=== PATIENT | male | born 1995 | race Caucasian/White ===

== ENCOUNTER 2017-02-24 14:14 | Emergency (ER) | payer MEDICAID ==
[2017-02-24] MEDS ORDERED: ONDANSETRON HCL 4 MG/2 ML VIAL ONE (14:31)
[2017-02-24] MEDS ORDERED: FENTANYL 100 MCG/2 ML VIAL ONE (14:45)
[2017-02-24 14:51] LABS: EOSINOPHILS 0.1 % (0.0-6.0); MEAN CORPUS. HGB CONCENTRATION 31.5 g/dL (32.0-36.0); MEAN CORPUSCULAR HEMOGLOBIN 21.8 pg (29.0-35.0); MEAN PLATELET VOLUME 7.5 fL (7.4-10.4)
[2017-02-24 14:58] LABS: BASOPHIL# 0.1 X 10^3uL (0.0-0.1); BASOPHILS 0.5 % (0.0-2.0); HEMATOCRIT 36.1 % (42.0-54.0); HEMOGLOBIN 11.4 g/dL (14.0-18.0); LYMPHOCYTES 11.6 % (20.0-40.0); LYMPHOCYTES# 1.7 X 10^3uL (0.8-3.8); MONOCYTES 3.5 % (2.0-10.0); MONOCYTES# 0.5 X 10^3uL (0.2-1.0); NEUTROPHILS 84.3 % (54.0-75.0); NEUTROPHILS# 12.3 X 10^3uL (2.6-6.7); PLATELET COUNT 674 X 10^3uL (130-440); RED BLOOD COUNT 5.23 X 10^6uL (4.20-6.10); RED CELL DISTRIBUTION WIDTH 18.9 % (11.5-14.5); WHITE BLOOD COUNT 14.6 X 10^3uL (3.9-10.7)
[2017-02-24 15:01] LABS: ALBUMIN 5.4 g/dL (3.5-5.0); ALKALINE PHOSPHATASE 85 U/L (38-126); ALT 31 U/L (21-72); AST 27 U/L (17-59); BILIRUBIN, DIRECT 0.3 mg/dL (0.0-0.4); BILIRUBIN, TOTAL 1.4 mg/dL (0.2-1.3); BLOOD UREA NITROGEN 18 mg/dL (9-20); CALCIUM 11.2 mg/dL (8.4-10.2); CHLORIDE 103 mmol/L (98-107); EST GLOMERULAR FILTRATION RATE > 60 mL/min; GLUCOSE 159 mg/dL (70-100); LIPASE 85 U/L (23-300); POTASSIUM 3.8 mmol/L (3.5-5.1); SODIUM 145 mmol/L (137-145)
--- NOTE | 2017-02-24 16:01 | CT REPORT ---
HISTORY: Acute abdominal pain. COMPARISON: None. TECHNIQUE: 5 mm axial images of the abdomen and pelvis after the intravenous administration of 98 mL of Isovue-3 00. This examination was performed using automated exposure control, adjustment of MA or KV according to patient size, and/or use of iterative reconstruction technique. FINDINGS: The lung bases are clear. The liver, spleen, pancreas, gallbladder, adrenal glands, and kidneys are unremarkable. No evidence of bowel obstruction. Appendix is not definitively identified but there is no definite evidence of a right lower quadrant i nflammatory process. IMPRESSION: No abnormal findings to explain the patient's abdominal pain. Please note that the appendix is not de finitively visualized so acute appendicitis is not excluded. No right lower quadrant inflammatory pro cess is identified. Final Electronic Signature: This report was electronically signed by Blas Raymundo MD, FACR on 02/24/2017 3:59 PM. ray /
[2017-02-24] MEDS ORDERED: HALOPERIDOL 5 MG/ML VIAL ONE (16:05)
[2017-02-24] MEDS ORDERED: DIPHENHYDRAMINE 50 MG/ML VIAL ONE (16:08)
[2017-02-24] MEDS ORDERED: KETOROLAC TROMETHAMINE 30 MG/ML VIAL ONE (16:23)
[2017-02-24 18:19] LABS: URINE RBC NONE SEEN (0-5/hpf)
[2017-02-24 18:27] LABS: URINE APPEARANCE CLEAR; URINE COLOR YELLOW; URINE GLUCOSE NORMAL (NEGATIVE); URINE LEUKOCYTE ESTERASE NEGATIVE (NEGATIVE); URINE NITRITE NEGATIVE (NEGATIVE); URINE PH 7.5 (5-7); URINE PROTEIN 30mg/dL (1+) (NEG - TRACE); URINE SPECIFIC GRAVITY 1.015 (0.001-1.035)
[2017-02-24 18:28] LABS: URINE BACTERIA NONE SEEN (<10/hpf); URINE BILIRUBIN 0.5 mg/100ml (1+) (NEGATIVE); URINE BLOOD NEGATIVE (NEGATIVE); URINE KETONE 100mg/dL (3+) (NEGATIVE); URINE SQUAMOUS EPITHELIAL CELL 0-5/hpf (<= 15/hpf); URINE UROBILINOGEN NORMAL (NEG-1mg/dL); URINE WBC 0-4/hpf (0-4/hpf)
--- NOTE | 2017-02-24 19:28 | ER NURSING DOCUMENTATION ---
Nurse's Notes [facility] Name:Yusef River Age:21 yrs Sex:Male :1995 Arrival Date:02/24/2017 Time:14:14 BedD-2 Private MD: Diagnosis:Abdominal Pain, Unspecified Presentation: 02/24 14:25 Presenting complaint: Patient states: SINCE YESTERDAY C/O SEVERE LOWER ABDOMINAL PAIN lc WITH N/V/D, NO FEVER. NO HX OF TRAUMA. CLUTCHING ABDOMEN AND YELLING. 14:25 Acuity: CYNDIE 2 lc 14:35 Transition of care: patient was not received from another setting of care. Risk lc considerations: scrotal pain, RADIATES TO, MD NOTIFIED. 14:35 Method Of Arrival: Private Vehicle lc Triage Assessment: 14:37 General: Appears distressed, ill, Behavior is agitated, anxious. Pain: Complains of lc pain in suprapubic area Pain radiates to GROIN Pain At worst was 10 out of 10 on a pain scale. Quality of pain is described as sharp, stabbing, Pain began 1 day ago. Neuro: Level of Consciousness is awake, alert, Oriented to person, place, time, none. GI: Abdomen is non- distended Bowel sounds hypoactive in right upper quadrant, left upper quadrant, right lower quadrant and left lower quadrant Abdomen is tender to palpation in suprapubic area Reports diarrhea, nausea, vomiting. Derm: Skin is pale. Historical: - Allergies: PENICILLINS; SULFA (SULFONAMIDES); - Home Meds: 1. None - PMHx: None; - PSHx: None; - Tetanus: < 10 years. - Ebola Screening: : Patient denies travel to an Ebola-affected area in the 21 days before illness onset. No symptoms or risks identified at this time. . - Immunization history: Flu Vaccine unknown. - Social history: Smoking status: Patient states was never smoker of tobacco. Patient uses alcohol marijuana Patient/guardian denies using street drugs. Screenin:40 Infectious Disease Risk None. Abuse screen: Denies threats or abuse. Denies injuries lc from another. Nutritional screening: No deficits noted. Assessment: 14:40 See Triage Assessment done by same RN. lc 16:15 Reassessment: Patient states feeling better. Patient states symptoms have improved. lc Patient appears in no apparent distress at this time. PATIENT HAS BEEN PACING ROOM AND CHANGING POSITIONS CONSTANTLY DUE TO THE PAIN. IS NOW RELAXED AND SLEEPY. VSS. O2 APPLIED. ON MONITORS AND RESTING.. 17:53 Reassessment: PT FOUND UP IN HALLS, TRIED TO PULL OUT IV, UNABLE TO GIVE A URINE lc SAMPLE. PAIN IMPROVED BUT STILL THERE. ACTS CONFUSED. STILL DENIES ANY DRUG USE RECENTLY. HIS BROTHER CALLED AND HAVING HIM COME TO ED. . 18:15 Reassessment: FINALLY GAVE URINE SAMPLE. AFTER WANTED TO LEAVE, FAMILY HERE , IV lc REMOVED, DID NOT WAS TO STAY FOR DC INSTRUCTIONS, JUST LEFT. FAMILY TOLD ME HE WAS WITHDRAWING FROM METH AND HEROIN. PATIENT HAD DENIED THIS TO OUR STAFF SEVERAL TIMES DURING HIS VISIT.. Vital Signs: 14:20 BP 144 / 89; Pulse 98; Resp 18; Temp 98.1; Pulse Ox 100% on R/A; Weight 68.04 kg; lc Height 5 ft. 5 in. (165.10 cm); Pain 10/10; 15:26 Pulse 98; Resp 18; Pulse Ox 98% ; Pain 8/10; lc 16:23 BP 121 / 62; Pulse 54; Resp 14; Pulse Ox 99% on 2 lpm NC; Pain 2/10; lc 16:42 Pulse 78; Resp 16; Pulse Ox 99% on 2 lpm NC; Pain 0/10; lc 17:33 Pulse 78; Resp 16; Pulse Ox 96% on 2 lpm NC; Pain 0/10; lc 14:20 Body Mass Index 24.96 (68.04 kg, 165.10 cm) lc 16:23 SAT DROPPED TO 80% AND SLEEPY, O2 APPLIED, AROUSES EASILY. lc 17:33 SLEEPING lc ED Course: 14:15 Patient arrived in ED. dp 14:20 Labs drawn. (by ED staff). Sent per order to lab. Inserted peripheral IV: 20 gauge in lc right antecubital area saline lock:. 14:24 Sophy Menon RN is Primary Nurse. lc 14:27 Triage completed. lc 14:31 Robert Ortiz MD is Attending Physician. tl1 14:40 Valuables Remains with patient Patient has correct armband on for positive lc identification. Placed in gown. Bed in low position. Call light in reach. Warm blanket given. 15:41 Patient moved back from [place]. dnn 18:11 [facility] is Referral Physician. tl1 Administered Medications: 14:25 Drug: Zofran 4 mg; Route: IVP; Infused Over: 2 mins; Site: right antecubital; lc 15:10 Follow up: Response: Nausea is decreased lc 14:28 Drug: NS 0.9% 1000 ml; Route: IV; Rate: bolus; Site: right antecubital; lc 17:00 Follow up: IV Status: Completed infusion; IV Intake: 1000ml lc 14:34 Drug: fentaNYL (PF) 50 mcg; Route: IVP; Site: right antecubital; lc 15:10 Follow up: Response: Pain is decreased lc 14:50 Drug: Dilaudid 1 mg; Route: IVP; Site: right antecubital; lc 15:10 Follow up: Response: Pain is decreased lc 16:00 Drug: Benadryl 25 mg; Route: IVP; Site: right antecubital; lc 16:43 Follow up: Response: No adverse reaction lc 16:02 Drug: Haldol 2.5 mg; {Note: PER VERBAL ORDER.} Route: IVP; Site: right antecubital; lc 16:45 Follow up: Response: Anxiety decreased lc 16:10 Drug: Toradol 30 mg; Route: IVP; Site: right antecubital; lc 16:44 Follow up: Response: Pain is decreased lc Point of Care Testing: Urine Dip: 18:10 pH: 7.5; ; Specific Fonda: 1.015; Ketones: Large; Glucose: Negative; Protein: lc Positive (+); Leukocytes: Negative; Nitrite: Negative ; Blood: Negative; Bilirubin: Small (+) ; Urobilinogen: Normal Intake: 17:00 IV: 1000ml; Total: 1000ml. Outcome: 18:12 Discharge ordered by . tl1 19:20 Discharged to home ambulatory, with family. lc 19:20 Condition: stable 19:20 Discharge Assessment: STILL HAS FINE TREMORS AND ABD PAIN 19:20 Discharge instructions given to LEFT BEFORE INSTRUCTIONS PRINTED, DID NOT WANT TO WAIT AND FAMILY IN A HURRY. Instructed on discharge instructions, follow up and referral plans. 19:20 IV D/Rudy 19:27 Patient left the ED. 02/25 09:52 Discharge F/U Call: Spoke with: patient. Overall Care on a scale of 1-10 with 10 lc being the best care, you rate our care as: Other comments: CAME BACK FOR SAME PROBLEM, TREATED AND RELEASED. Signatures: Sophy Menon RN RN lc Norman, David dnn Leigh, Tom, MD MD tl1 Angela Valero dp
--- NOTE | 2017-02-26 19:27 | ER PHYSICIAN DOCUMENTATION ---
Physician Documentation [facility] Name:Yusef River Age:21 yrs Sex:Male :1995 Arrival Date:02/24/2017 Time:14:14 BedD-2 Private MD: Robert Rdz Disposition: 02/26 07:54 Chart complete. tl1 Disposition: 02/24/17 18:12 Discharged to Home/Self Care. Impression: Abdominal Pain, Unspecified. - Condition is Good. - Discharge Instructions: Abdomen - ABDOMINAL PAIN, Unkown Cause, (Male). - Medical Reconciliation form form. - Follow up: [facility]; When: 4- 6 days; Reason: Recheck today's complaints, Continuance of care. - Problem is new. - Symptoms have improved. - Notes: Get into a detox program so you can get off meth and heroin. HPI: 02/24 14:30 This 21 yrs old Male presents to ER via Private Vehicle with complaints of tl1 Abdominal Pain. 14:30 The patient presents with abdominal pain that is diffuse. Onset: The symptoms/episode tl1 began/occurred gradually, this morning. The symptoms do not radiate. Associated signs and symptoms: Pertinent positives: anorexia, nausea, vomiting, Pertinent negatives: blood in stools, chest pain, constipation, diarrhea, dysuria, fever, palpitations, shortness of breath, testicular pain. The symptoms are described as crampy. Modifying factors: The symptoms are alleviated by nothing, the symptoms are aggravated by alcohol. Severity of pain: At its worst the pain was severe incapacitating in the emergency department the pain is unchanged. He initially denied opiate or other recreational drug use, except for marijuana. Later discussions with his family revealed that he is a heroin and methamphetamine abuser.. Historical: - Allergies: PENICILLINS; SULFA (SULFONAMIDES); - Home Meds: 1. None - PMHx: None; - PSHx: None; - Tetanus: < 10 years. - Ebola Screening: : Patient denies travel to an Ebola-affected area in the 21 days before illness onset. No symptoms or risks identified at this time. . - Immunization history: Flu Vaccine unknown. - Social history: Smoking status: Patient states was never smoker of tobacco. Patient uses alcohol marijuana Patient/guardian denies using street drugs. ROS: 14:30 Abdomen/GI: Positive for abdominal pain, nausea, vomiting, Negative for diarrhea, tl1 constipation, hematemesis, black/tarry stool, rectal bleeding. 14:30 All other systems are negative. Exam: 14:30 Constitutional: The patient appears alert, awake, well developed, well hydrated, well tl1 nourished, diaphoretic, in obvious distress, moderately distressed, in obvious pain, restless, uncomfortable, unkempt. 14:30 Eyes: Pupils: equal, round, and reactive to light and accomodation, dilated, bilaterally, right pupil is approximately 4 mm(s), left pupil is approximately 4 mm(s), Sclera: icterus, is not appreciated. 14:30 Neck: ROM/movement: is normal, is supple, Lymph nodes: no appreciated lymphadenopathy. 14:30 Cardiovascular: Rate: tachycardic, Rhythm: regular, Heart sounds: normal, murmur, not appreciated, gallop, not appreciated. 14:30 Respiratory: Respirations: normal, no acute changes, Breath sounds: are normal. 14:30 Abdomen/GI: Inspection: abdomen appears normal, Bowel sounds: active, Palpation: soft, moderate abdominal tenderness, in all quadrants, Liver: no appreciated palpable abnormalities. 14:30 : CVA tenderness, is absent, Male external genitalia: normal, no swelling, no tenderness, penile discharge, is absent. 14:30 Musculoskeletal/extremity: Exam is negative for acute changes. 14:30 Skin: Exam negative for acute changes, , Extensive left shoulder and arm tatoos. 14:30 Neuro: Exam negative for acute changes. Vital Signs: 14:20 BP 144 / 89; Pulse 98; Resp 18; Temp 98.1; Pulse Ox 100% on R/A; Weight 68.04 kg; lc Height 5 ft. 5 in. (165.10 cm); Pain 10/10; 15:26 Pulse 98; Resp 18; Pulse Ox 98% ; Pain 8/10; lc 16:23 BP 121 / 62; Pulse 54; Resp 14; Pulse Ox 99% on 2 lpm NC; Pain 2/10; lc 16:42 Pulse 78; Resp 16; Pulse Ox 99% on 2 lpm NC; Pain 0/10; lc 17:33 Pulse 78; Resp 16; Pulse Ox 96% on 2 lpm NC; Pain 0/10; lc 14:20 Body Mass Index 24.96 (68.04 kg, 165.10 cm) lc 16:23 SAT DROPPED TO 80% AND SLEEPY, O2 APPLIED, AROUSES EASILY. lc 17:33 SLEEPING lc MDM: 14:49 Patient medically screened. tl1 16:00 Differential diagnosis: appendicitis, bowel obstruction, cholecystitis, Cholelithiasis, tl1 diverticulitis, GI Bleed, Herpes Zoster, Irritable bowel syndrome, non-specific abd pain, pancreatitis, Peptic Ulcer Disease, Perf. Duodenal Ulcer, Perf. Gastric Ulcer, Peritonitis, Pyelonephritis, Testicular Torsion, Ureterolithiasis. Data reviewed: vital signs, nurses notes, lab test result(s), CBC, electrolytes, hepatic panel, urinalysis, urine drug screen, and as a result, I will discharge patient. Counseling: I had a detailed discussion with the patient and/or guardian regarding: the historical points, exam findings, and any diagnostic results supporting the discharge/admit diagnosis, the need for outpatient follow up, with the patient's primary care provider, to return to the emergency department if symptoms worsen or persist or if there are any questions or concerns that arise at home, Getting treatment for his opioid addiction. Response to treatment: the patient's symptoms have markedly improved after treatment, and as a result, I will discharge patient, recommend opiate addiction detox and rehab. ED course: Pain much improved with dilaudid 2 mg IV. 02/24 15:10 Order name: BASIC METABOLIC PANEL; Complete Time: 16:28 EDMS 02/26 07:34 Interpretation: Normal Except: CARBON DIOXIDE 20; GLUCOSE 159; CALCIUM 11.2. [facility] 02/24 15:10 Order name: HEPATIC PANEL; Complete Time: 16:28 EDMS 02/26 07:34 Interpretation: Normal Except: ALBUMIN 5.4; BILIRUBIN, TOTAL 1.4; TOTAL PROTEIN 9.0. [facility] 02/24 15:10 Order name: LIPASE; Complete Time: 16:28 EDMS 02/26 07:34 Interpretation: Normal: LIPASE 85. [facility] 02/24 15:11 Order name: CBC AUTO DIF, MDIF/RMOR IF IND; Complete Time: 16:28 EDMS 02/26 07:34 Interpretation: WHITE BLOOD COUNT 14.6; HEMOGLOBIN 11.4; HEMATOCRIT 36.1; PLATELET tl1 COUNT 674; NEUTROPHILS 84.3. 02/24 18:31 Order name: UA W/ MICRO -CULTURE IF IND; Complete Time: 07:39 EDMS 07 07:36 Interpretation: Normal Except: URINE PROTEIN 30mg/dL (1+); URINE KETONE 100mg/dL (3+); tl1 URINE BILIRUBIN 0.5 mg/100ml (1+). 07 18:31 Order name: URINE DRUG SCREEN, QUAL; Complete Time: 07:39 EDMS 07 07:35 Interpretation: Abnormal: METHAMPHETAMINE PRESUMPTIVE POS; THC PRESUMPTIVE POS; tl1 METHADONE PRESUMPTIVE POS; OPIATE PRESUMPTIVE POS; AMPHETAMINE PRESUMPTIVE POS; OXYCODONE PRESUMPTIVE POS. 02/24 16:03 Order name: CAT SCAN; ABD/PEL W [id number]; Complete Time: 16:28 EDMS 02/24 16:28 Interpretation: See radiologist report. No apparent cause for his abdominal pain. tl1 Dispensed Medications: 14:25 Drug: Zofran 4 mg; Route: IVP; Infused Over: 2 mins; Site: right antecubital; lc 15:10 Follow up: Response: Nausea is decreased lc 14:28 Drug: NS 0.9% 1000 ml; Route: IV; Rate: bolus; Site: right antecubital; lc 17:00 Follow up: IV Status: Completed infusion; IV Intake: 1000ml lc 14:34 Drug: fentaNYL (PF) 50 mcg; Route: IVP; Site: right antecubital; lc 15:10 Follow up: Response: Pain is decreased lc 14:50 Drug: Dilaudid 1 mg; Route: IVP; Site: right antecubital; lc 15:10 Follow up: Response: Pain is decreased lc 16:00 Drug: Benadryl 25 mg; Route: IVP; Site: right antecubital; lc 16:43 Follow up: Response: No adverse reaction lc 16:02 Drug: Haldol 2.5 mg; {Note: PER VERBAL ORDER.} Route: IVP; Site: right antecubital; lc 16:45 Follow up: Response: Anxiety decreased lc 16:10 Drug: Toradol 30 mg; Route: IVP; Site: right antecubital; lc 16:44 Follow up: Response: Pain is decreased lc Point of Care Testing: Urine Dip: 18:10 pH: 7.5; ; Specific [place] Pos: 1.015; Ketones: Large; Glucose: Negative; Protein: lc Positive (+); Leukocytes: Negative; Nitrite: Negative ; Blood: Negative; Bilirubin: Small (+) ; Urobilinogen: Normal Signatures: Sophy Menon RN RN lc Leigh, Tom, MD MD tl1
== END 2017-02-24 19:28 | disposition home or self-care (01) ==
LOC: ER 14:14 → EEVIPCON 14:14 → ER 19:28
DX: R10.84 Generalized abdominal pain (principal); R11.2 Nausea with vomiting, unspecified; R00.0 Tachycardia, unspecified; F11.20 Opioid dependence, uncomplicated; F15.20 Other stimulant dependence, uncomplicated; F12.90 Cannabis use, unspecified, uncomplicated
CPT/HCPCS: 74177; 80048; 80076; 80305; 81001; 83690; 85025; 96361; 96374; 96375; 99284; J1170; J1200; J1630; J1885; J2405; J3010

== ENCOUNTER 2017-02-25 06:53 | Emergency (ER) | payer MEDICAID ==
[2017-02-25] MEDS ORDERED: ONDANSETRON HCL 4 MG/2 ML VIAL ONE (07:18)
[2017-02-25] MEDS ORDERED: LIDOCAINE VISCOUS 2% 15 ML UDC ONE (07:37)
[2017-02-25] MEDS ORDERED: MAG-AL PLUS XS SUSP 30 ML UDC ONE (07:37)
[2017-02-25] MEDS ORDERED: DIPH,PERTUSS(ACELL),TET VAC/PF 0.5 ML VIAL IM ONE (07:56)
[2017-02-25] MEDS ORDERED: KETOROLAC TROMETHAMINE 30 MG/ML VIAL ONE (08:14)
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
== END 2017-02-25 09:38 | disposition home or self-care (01) ==
LOC: ER 06:53 → EEVIPCON 06:53 → ER 09:38
DX: F11.93 Opioid use, unspecified with withdrawal (principal); R10.84 Generalized abdominal pain; R11.2 Nausea with vomiting, unspecified; S20.419A Abrasion of unspecified back wall of thorax, initial encounter; W25.XXXA Contact with sharp glass, initial encounter; Z23 Encounter for immunization; F15.120 Other stimulant abuse with intoxication, uncomplicated; Z79.899 Other long term (current) drug therapy; Z74.3 Need for continuous supervision
CPT/HCPCS: 90471; 96361; 96374; 96375; 99284; A0425; A0429; J1170; J1885; J2405

== ENCOUNTER 2017-02-25 17:14 | Emergency (ER) | payer MEDICAID ==
[2017-02-25] MEDS ORDERED: ONDANSETRON HCL 4 MG/2 ML VIAL ONE (17:42)
[2017-02-25] MEDS ORDERED: PANTOPRAZOLE 40 MG VIAL IV ONE (17:42)
[2017-02-25] MEDS ORDERED: NORMAL SALINE 100 ML IV ONE (17:43)
[2017-02-25 17:51] LABS: BASOPHILS 0.1 % (0.0-2.0); EOSINOPHILS 0.1 % (0.0-6.0); LYMPHOCYTES 11.6 % (20.0-40.0); LYMPHOCYTES# 1.6 X 10^3uL (0.8-3.8); MEAN CORPUS. HGB CONCENTRATION 31.4 g/dL (32.0-36.0); MEAN PLATELET VOLUME 6.9 fL (7.4-10.4); MONOCYTES 5.5 % (2.0-10.0); MONOCYTES# 0.8 X 10^3uL (0.2-1.0); NEUTROPHILS 82.7 % (54.0-75.0); NEUTROPHILS# 11.6 X 10^3uL (2.6-6.7)
[2017-02-25 17:53] LABS: RED BLOOD COUNT 3.76 X 10^6uL (4.20-6.10)
[2017-02-25 17:54] LABS: HEMOGLOBIN 8.2 g/dL (14.0-18.0); MEAN CELL VOLUME 69.3 fL (80.0-100.0); MEAN CORPUSCULAR HEMOGLOBIN 21.7 pg (29.0-35.0); RED CELL DISTRIBUTION WIDTH 18.9 % (11.5-14.5)
[2017-02-25 17:55] LABS: PLATELET COUNT 494 X 10^3uL (130-440)
[2017-02-25] MEDS ORDERED: LACTATED RINGERS 1,000 ML IV ONE (18:01)
[2017-02-25 18:04] LABS: ALBUMIN 4.1 g/dL (3.5-5.0); BLOOD UREA NITROGEN 27 mg/dL (9-20); CALCIUM 9.4 mg/dL (8.4-10.2); CHLORIDE 102 mmol/L (98-107); EST GLOMERULAR FILTRATION RATE > 60 mL/min; GLUCOSE 108 mg/dL (70-100); POTASSIUM 3.6 mmol/L (3.5-5.1); SODIUM 137 mmol/L (137-145); TOTAL PROTEIN 6.9 g/dL (6.3-8.2)
[2017-02-25 18:06] LABS: ALKALINE PHOSPHATASE 52 U/L (38-126); ALT 33 U/L (21-72); AST 19 U/L (17-59); BILIRUBIN, TOTAL 0.6 mg/dL (0.2-1.3); LIPASE 87 U/L (23-300)
[2017-02-25 18:31] LABS: RH TYPE POSITIVE
--- NOTE | 2017-02-25 19:37 | ER PHYSICIAN DOCUMENTATION ---
Physician Documentation [facility] Name:Yusef River Age:21 yrs Sex:Male :1995 Arrival Date:02/25/2017 Time:17:14 BedTrauma-A Private MD:No PCP, Identified ED Domenico Lemus Disposition: 02/25/17 17:56 Transfer ordered to [facility]. Diagnosis is UGI Bleed. - Reason for transfer: Higher level of care. - Accepting physician is Dr. Hernandez, Hospitalist. . - Condition is Good. - Problem is new. - Symptoms have worsened. COBRA Form completed? Yes Transfer - Mode of Transportation Ambulance HPI: 02/25 17:35 This 21 yrs old Male presents to ER via EMS with complaints of Abdominal Pain.be 17:46 This 21 yrs old Male presents to ER via EMS with complaints of Abdominal Pain.be 17:46 The patient presents with abdominal pain in the epigastric area. Onset: The be symptoms/episode began/occurred yesterday, and became persistent. Associated signs and symptoms: Pertinent positives: nausea, vomiting, vomiting blood, Pertinent negatives: anorexia, constipation. The symptoms are described as achy. Modifying factors: The symptoms are alleviated by nothing, the symptoms are aggravated by movement, vomiting. Severity of pain: At its worst the pain was severe this morning. The patient has experienced similar episodes in the past, a few times, and the symptoms today are exactly the same, to when the patient was apparently diagnosed with Gastritis after negative CT scan yesterday and Hgb of 11.4. Seen at [facility] and Hgb now 8.4 by verbal report and allegedly experiencing hematemasis.. Historical: - Allergies: PENICILLINS; SULFA (SULFONAMIDES); - Home Meds: 1. ranitidine HCl Oral - PMHx: NONE; Narcotic Withdrawal (February 25, 2017); - PSHx: NONE; - Ebola Screening: : Patient negative for fever greater than or equal to 101.5 degrees Fahrenheit, and additional compatible Ebola Virus Disease symptoms. Patient denies exposure to infectious person. Patient denies travel to an Ebola-affected area in the 21 days before illness onset. No symptoms or risks identified at this time. . - Immunization history: Unable to Obtain. ROS: 17:50 Abdomen/GI: Positive for abdominal pain, nausea, vomiting, diarrhea, abdominal cramps, be Negative for rectal bleeding. 17:50 All other systems are negative. Exam: 17:51 Cardiovascular: Rate: normal, Rhythm: regular, Pulses: no pulse deficits are be appreciated. 17:51 Respiratory: the patient does not display signs of respiratory distress, Respirations: normal, Breath sounds: are normal. 17:51 Abdomen/GI: Palpation: moderate abdominal tenderness, in all quadrants. 17:51 : Male external genitalia: normal, no tenderness, Rectal exam: Rectal tone: Stool: brown. Vital Signs: 17:10 BP 127 / 54 (auto/); sc1 17:12 BP 115 / 73 (auto/); sc1 17:21 BP 154 / 73 (auto/); sc1 17:26 Pulse 115 MON; Resp 21; Pulse Ox 100% ; sc1 17:30 BP 125 / 62 (auto/); sc1 17:31 Pulse 112 MON; Resp 24; sc1 18:02 BP 139 / 66 (auto/); sc1 18:06 Pulse 77 MON; Resp 17; Pulse Ox 100% ; sc1 19:26 BP 121 / 68 (auto/); sc1 19:26 Pulse 87 MON; Resp 19; Pulse Ox 100% ; sc1 MDM: 17:52 Differential diagnosis: gastritis, GI Bleed, Peptic Ulcer Disease, Perf. Duodenal be Ulcer. Physician consultation: Initially spoke with Dr. Dutta from [facility] who inquired about previous work-up, lab and CT results. Then later transferred due to low Hgb. Discussed case with Dr. Hernandez, Hospitalist at [facility], agreed to accept to monitored floor bed.. 17:56 Patient medically screened. be 17:57 Data reviewed: and as a result, I will *Transfer Patient administer IV fluids, LR be bolus, Pantoprazole 80 mg IVP and 8 mg/hr IVPB.. 02/25 17:56 Order name: CBC AUTO DIF, MDIF/RMOR IF IND; Complete Time: 08:06 EDMS 02/25 17:58 Interpretation: Abnormal: Anemia, Leukocytosis with left shift and polycythemia. be 02/25 18:07 Order name: BASIC METABOLIC PANEL; Complete Time: 08:06 EDMS 02/25 18:07 Order name: HEPATIC PANEL; Complete Time: 08:06 EDMS 07 08:06 Interpretation: Normal. be 02/25 18:07 Order name: LIPASE; Complete Time: 08:06 EDMS 07 08:06 Interpretation: Normal. be 02/25 18:32 Order name: RH TYPE; Complete Time: 08:06 EDMS 07 08:06 Interpretation: Normal. be 02/26 11:54 Order name: ABDOMEN; COMPLET W/CHEST [id number] EDMS 02/25 17:19 Order name: NPO; Complete Time: 17:35 be Dispensed Medications: 17:00 Drug: Protonix 8 mg/hr; Route: IV; Rate: per protocol; Site: left antecubital; [facility] Delivery: [place] Tubing; 17:40 Drug: Zofran 8 mg; Route: IVP; Infused Over: 2 mins; Site: right antecubital; st 07 10:30 Follow up: Response: No adverse reaction; Nausea is decreased [facility] 02/25 17:40 Drug: Dilaudid 1 mg; Route: IVP; Site: left antecubital; 07 10:30 Follow up: Response: No adverse reaction; Pain is decreased [facility] 02/25 17:40 Drug: Protonix 80 mg; Route: IVPB; Site: left antecubital; st 17:51 Drug: LR - Lactated Ringers Solution 1000 ml; Route: IV; Rate: bolus; Site: left sc1 antecubital; Delivery: [place] Tubing; 19:34 Follow up: IV Status: Infusing continued upon transfer; IV Intake: 500ml [facility] Signatures: Anel Magaña RN RN st Campbell, Sandy, RN RN [facility] Domenico Mallory MD MD be
--- NOTE | 2017-02-25 19:37 | ER NURSING DOCUMENTATION ---
Nurse's Notes [facility] Name:Yusef River Age:21 yrs Sex:Male :1995 Arrival Date:02/25/2017 Time:17:14 BedTrauma-A Private MD:No PCP, Identified Diagnosis:UGI Bleed Presentation: 02/25 17:24 Acuity: CYNDIE 2 rh 17:32 Presenting complaint: Patient states: abdominal pain. Transition of care: patient was sc1 not received from another setting of care. Notified ED Physician of patient's arrival and CC Dr. Mallory notified. 17:32 Method Of Arrival: EMS: 410 sc1 Triage Assessment: 17:32 General: Appears distressed, well developed, well nourished, well groomed, Behavior is sc1 restless. Pain: Complains of pain in abdomen. GI: No deficits noted. Historical: - Allergies: PENICILLINS; SULFA (SULFONAMIDES); - Home Meds: 1. ranitidine HCl Oral - PMHx: NONE; Narcotic Withdrawal (February 25, 2017); - PSHx: NONE; - Ebola Screening: : Patient negative for fever greater than or equal to 101.5 degrees Fahrenheit, and additional compatible Ebola Virus Disease symptoms. Patient denies exposure to infectious person. Patient denies travel to an Ebola-affected area in the 21 days before illness onset. No symptoms or risks identified at this time. . - Immunization history: Unable to Obtain. Screenin:34 Infectious Disease Risk None. Abuse screen: Denies threats or abuse. Nutritional sc1 screening: No deficits noted. Assessment: 17:25 GI: Bowel sounds present X 4 quads. Abdomen is tender to palpation X 4 quads. sc1 Vital Signs: 17:10 BP 127 / 54 (auto/); sc1 17:12 BP 115 / 73 (auto/); sc1 17:21 BP 154 / 73 (auto/); sc1 17:26 Pulse 115 MON; Resp 21; Pulse Ox 100% ; sc1 17:30 BP 125 / 62 (auto/); sc1 17:31 Pulse 112 MON; Resp 24; sc1 18:02 BP 139 / 66 (auto/); sc1 18:06 Pulse 77 MON; Resp 17; Pulse Ox 100% ; sc1 19:26 BP 121 / 68 (auto/); sc1 19:26 Pulse 87 MON; Resp 19; Pulse Ox 100% ; sc1 ED Course: 17:15 Patient arrived in ED. ds 17:16 No PCP, Identified is Private Physician. ds 17:16 Domenico Mallory MD is Attending Physician. be 17:24 Triage completed. rh 17:25 Valuables sent with patient transfer to another facility. sc1 17:31 Marquita Redmond, RN is Primary Nurse. sc1 17:33 Notified ED Physician of patient's arrival and chief complaint. Dr. Mallory. Arm band sc1 placed on Bed in low position Call Light in Reach Gowned HOB Elevated Side rails up x2. 17:38 Inserted peripheral IV: 18 gauge in right antecubital area and blood collected. st Administered Medications: 17:00 Drug: Protonix 8 mg/hr; Route: IV; Rate: per protocol; Site: left antecubital; mn1 Delivery: [place] [facility]; 17:40 Drug: Zofran 8 mg; Route: IVP; Infused Over: 2 mins; Site: right antecubital; st 07 10:30 Follow up: Response: No adverse reaction; Nausea is decreased the [facility] 02/25 17:40 Drug: Dilaudid 1 mg; Route: IVP; Site: left antecubital; st 07/ 10:30 Follow up: Response: No adverse reaction; Pain is decreased the [facility] / 17:40 Drug: Protonix 80 mg; Route: IVPB; Site: left antecubital; st 17:51 Drug: LR - Lactated Ringers Solution 1000 ml; Route: IV; Rate: bolus; Site: left sc1 antecubital; Delivery: [place] [facility]; 19:34 Follow up: IV Status: Infusing continued upon transfer; IV Intake: 500ml sc1 Intake: 19:34 IV: 500ml; Total: 500ml. sc1 Outcome: 17:56 ER care complete, transfer ordered by . be 19:33 [facility] Acceptance Time: February 25, 2017 at 18:15 Patient's face sheet was faxed to accepting facility. Face Sheet included patient's name, address, age, gender, contact information and insurance information. Patient will be transported by: [facility] ground. Nurse and Physician Charting and Notes were sent to Accepting Facility. All tests and/or procedures with results, if applicable, were sent to accepting facility. 19:36 Patient left the ED. sc1 20:04 Condition: stable sc1 20:04 Report given to Eliazar METZGER 20:04 Instructed on need for transfer Signatures: Anel Magaña RN RN st Campbell, Sandy, RN RN sc1 Benson, Amanda, Reg Reg Domenico Abernathy MD MD be Terriere, Tracy tt Hofsess, Rachel
--- NOTE | 2017-02-26 11:15 | RADIOLOGY REPORT ---
A single view of the chest appears unremarkable. Views of the abdomen demonstrate a normal bowel gas pattern. No pathologic calcifications or free air are identified. IMPRESSION: Unremarkable views of the chest and abdomen. MTDD
== END 2017-02-25 19:36 | disposition short-term general hospital (02) ==
LOC: ER 17:14
DX: K92.0 Hematemesis (principal); R10.84 Generalized abdominal pain; R11.0 Nausea; R19.7 Diarrhea, unspecified; D64.9 Anemia, unspecified; D72.829 Elevated white blood cell count, unspecified; D75.1 Secondary polycythemia; F11.10 Opioid abuse, uncomplicated; F15.120 Other stimulant abuse with intoxication, uncomplicated; Z99.81 Dependence on supplemental oxygen; Z74.3 Need for continuous supervision
CPT/HCPCS: 74022; 80048; 80076; 83690; 85025; 86901; 90471; 96361; 96374; 96375; 96376; 99284; 99285; A0425; A0427; A0429; J1170; J1885; J2405; J7120